=== PATIENT | male | born 1965 | race Caucasian/White ===

== ENCOUNTER 2022-12-28 15:28 | Emergency (ER) | payer OTHER, SELFPAY ==
[2022-12-28 15:31] VITALS: BP 155/82; PULSE 86; RESP 18; TEMP 36; O2SAT 100
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
--- NOTE | 2022-12-28 19:02 | EKG12_ITS ---
Test Reason : DYSRHYTHMIA Blood Pressure : / mmHG Vent. Rate : 084 BPM Atrial Rate : 084 BPM P-R Int : 156 ms QRS Dur : 102 ms QT Int : 372 ms P-R-T Axes : 083 065 061 degrees QTc Int : 439 ms Normal sinus rhythm Possible Left atrial enlargement Borderline ECG Confirmed by DAVE SOLOMON, MARÍA ([id number]), tape editor TRISTON RENEE ([id number]) on 01/09/2023 8:03:25 AM Referred By: Confirmed By:AMARILIS ACOSTA MD
[2022-12-28 20:31] LABS: Absolute Lymphocyte Count 1.53 X10^3/uL (0.83-4.51); Absolute Neutrophil Count 9.1 X10^3/uL (2.0-7.7); Basophil# 0.05 X10^3/uL; Basophil% 0.4 % (0-1); Eosinophil# 0.03 X10^3/uL; Eosinophils% 0.2 % (0-5); Hematocrit 44.6 % (40-54); Hemoglobin 14.5 g/dL (13.0-16.5); Lymphocyte # 1.53 X10^3/ul (0.83-4.51); Lymphocyte % 12.7 % (19-41); Mean Corp Hgb Conc 32.5 g/dL (32-36); Mean Corpuscular Hgb 30.3 pg (27.0-32.0); Mean Corpuscular Volume 93.1 fL (80-94); Mean Platelet Vol. 9.3 fl (6.2-12.0); Monocyte# 1.23 X10^3/uL; Monocyte% 10.2 % (0-10); NRBC Flagged by Analyzer 0 % (0-5); Neutrophil # 9.13 X10^3/uL (2.7-7.7); Neutrophil % 75.8 % (47-70); Platelet Count 194 K/mm3 (150-450); RBC Distribution Width CV 13.3 % (11.6-14.6); RBC Distribution Width SD 45.3 fl (35.1-43.9); Red Blood Count 4.79 M/mm3 (4.6-6.2); White Blood Count 12.1 K/mm3 (4.4-11.0)
[2022-12-28 20:48] LABS: Alcohol, Blood (Medical)-Serum < 3.0 mg/dL
[2022-12-28 20:51] LABS: ALB/GLOB Ratio 1.1 RATIO (0.9-2.4); AST(SGOT) 58 U/L (15-37); Alanine Aminotransfer ALT/SGPT 41 U/L (16-61); Albumin, Serum 3.8 g/dL (3.2-5.0); Alkaline Phosphatase 52 U/L (45-117); Anion Gap 4 (5-15); BUN 14 mg/dL (7-18); BUN/Creat Ratio 13.7 RATIO (10-20); Calcium,Total 9.4 mg/dL (8.5-10.1); Chloride 103 mmol/L (98-107); Creatinine, Serum 1.02 mg/dL (0.70-1.30); EST Glomerular Filtration Rate 79 mL/min (>60); Est Glom Filt Rate - Afr Amer 96 mL/min (>60); Globulin 3.5 g/dL (2.2-4.2); Glucose 129 mg/dL (74-106); Potassium 3.7 mmol/L (3.5-5.1); Protein, Total 7.3 g/dL (6.4-8.2); Sodium Level 137 mmol/L (136-145); Troponin-I HS 10 pg/mL (3.0-78.0)
[2022-12-28 21:00] VITALS: BP 142/81; PULSE 79; RESP 15; TEMP 36.7; O2SAT 100
[2022-12-28 21:17] VITALS: BP 142/81; PULSE 79; RESP 16; TEMP 36.7; O2SAT 99
== END 2022-12-28 21:22 | disposition short-term general hospital (02) ==
PROVIDERS: Emergency Provider Student in an Organized Health Care Education/Training Program; PCP Family Medicine; Visit Provider Student in an Organized Health Care Education/Training Program
DX: M48.54XA Collapsed vertebra, not elsewhere classified, thoracic region, initial encounter for fracture (principal); S12.600A Unspecified displaced fracture of seventh cervical vertebra, initial encounter for closed fracture; V89.2XXA Person injured in unspecified motor-vehicle accident, traffic, initial encounter
CPT/HCPCS: 36415; 70450; 71250; 72125; 80053; 82077; 84484; 85025; 93005; 99285